=== PATIENT | female | born 1985 | race Caucasian/White ===

== ENCOUNTER → 2020-01-05 16:19 | Outpatient (CLI) | payer OTHER, SELFPAY ==
[2020-01-05 17:50] LABS: Absolute Lymphocyte Count 2.18 X10^3/uL (0.83-4.51); Absolute Neutrophil Count 5.4 X10^3/uL (2.0-7.7); Basophil# 0.03 X10^3/uL; Basophil% 0.4 % (0-1); Eosinophil# 0.04 X10^3/uL; Eosinophils% 0.5 % (0-5); Hematocrit 40.6 % (37-47); Hemoglobin 13.8 g/dL (12.0-15.0); Lymphocyte # 2.18 X10^3/ul (4.0); Lymphocyte % 26.6 % (19-41); Mean Corpuscular Hgb 30.6 pg (27.0-32.0); Mean Platelet Vol. 8.7 fl (6.2-12.0); Monocyte# 0.53 X10^3/uL; Monocyte% 6.5 % (0-10); NRBC Flagged by Analyzer 0 % (0-5); Neutrophil # 5.42 X10^3/uL (2.7-7.7); Neutrophil % 65.9 % (47-70); Platelet Count 249 K/mm3 (150-450); RBC Distribution Width CV 11.3 % (11.6-14.6); RBC Distribution Width SD 37.1 fl (35.1-43.9); Red Blood Count 4.51 M/mm3 (4.2-5.4); White Blood Count 8.2 K/mm3 (4.4-11.0)
[2020-01-05 18:10] LABS: Erythrocyte Sedimentation Rate 11 mm/hr (0-20)
[2020-01-05 18:13] LABS: CRP < 2.90 mg/L (0.0-3.0); Rheumatoid Factor < 10.0 IU/mL (<15)
[2020-01-07 16:17] LABS: ANTINUCLEAR ANTIBODIES DIRECT Negative (Negative)
== END ==
PROVIDERS: PCP Family Medicine
DX: M19.039 Primary osteoarthritis, unspecified wrist (principal)
CPT/HCPCS: 36415; 85025; 85652; 86038; 86140; 86431

== ENCOUNTER 2024-12-01 18:45 | Emergency (ER) | payer OTHER, SELFPAY ==
[2024-12-01 18:46] VITALS: BP 124/103; PULSE 71; RESP 16; TEMP 36; O2SAT 99; BMI 23.1
--- NOTE | 2024-12-01 19:09 | ED.VIS.GI ---
HPI <AQUILINO Payne - Last Filed: 12/01/24 21:46> HPI - GI History of Present Illness Chief Complaint: GI Bleed Narrative Narrative: Patient presenting today due to concerns for bright red blood she saw in her stool around 5 PM this evening. She had an episode of loose stool that contained bright red blood. Reports that this did happen once in the past but seem to resolve on its own. She does have a history of hemorrhoids and occasionally notices bright red blood after wiping. She reports mild right lower quadrant abdominal pain and nausea that also started around 5 PM. She denies any history of diverticulitis, she has never had a colonoscopy in the past. No history of GI bleed, she is not on any blood thinners. She denies any chronic medical conditions. She has had no fevers, vomiting, urinary symptoms, or previous abdominal surgery. PFSH <AQUILINO Payne - Last Filed: 12/01/24 21:46> [facility] Home Medications ?Medication ?Instructions ?Recorded ?Last Taken ?Type NK 12/01/24 Unknown History Allergy/AdvReac Type Severity Reaction Status Date / Time No Known Allergies Allergy Verified 12/01/24 18:45 ROS <AQUILINO Payne - Last Filed: 12/01/24 21:46> ROS ED Constitutional Constitutional ED: Denies chills or fever(s) Cardiovascular Cardiovascular: Denies chest pain Respiratory/Chest Respiratory/Chest: Denies dyspnea Gastrointestinal Gastrointestinal: Reports abdominal pain, diarrhea, hematochezia and nausea; Denies constipation or vomiting Genitourinary Genitourinary ED: Denies dysuria, hematuria or urinary urgency Musculoskeletal Musculoskeletal: Denies arthralgias or myalgias Integumentary Denies rash Neurologic Neurologic: Denies weakness EXAM <AQUILINO Payne - Last Filed: 12/01/24 21:46> Physical Exam Const Vital Signs: 12/01/24 18:46 12/01/24 20:45 12/01/24 21:01 Temperature 96.8 F L Temperature Source Temporal Pulse Rate 71 78 Pulse Rate [Lying] 89 Pulse Rate [Sitting (for 1 minute prior to obtaining)] 81 Pulse Rate [Standing (for 1 minute prior to obtaining)] 96 Respiratory Rate 16 18 Blood Pressure 124/103 H 115/81 H Blood Pressure [Lying] 116/77 Blood Pressure [Sitting (for 1 minute prior to obtaining)] 112/76 Blood Pressure Mean 110 92 Blood Pressure Mean [Lying] 90 Blood Pressure Mean [Sitting (for 1 minute prior to obtaining)] 88 Pulse Ox 99 98 Oxygen Delivery Method Room Air Room Air Positive well nourished, well developed and no apparent distress General Appearance ED: well developed HEENT Reports normocephalic and head/scalp atraumatic Mouth ED: Yes moist mucous membranes normal Eyes PERRL and EOMs intact bilaterally Neck full ROM and supple Chest Wall inspection of chest normal Resp normal respiratory effort and clear to auscultation bilaterally Cardio regular rate and regular rhythm GI soft to palpation, non-distended and no masses GI Narrative: Minimal right-sided abdominal tenderness to palpation, no rigidity or guarding. No McBurney's point tenderness. Rectal examination performed with nurse present, no gross rectal bleeding, no blood on the rectum, there is 1 small nonthrombosed external hemorrhoid without any bleeding, on REMEDIOS no blood was noted. Back/Spine normal ROM and normal to inspection Extremity normal to inspection and full ROM Neuro oriented x3, CN's II-XII intact bilaterally, moves all extremities, no focal motor deficits and no sensory deficits noted Sensorium / Orientation: awake and alert Psych mental status grossly normal and thought process normal Skin no rashes or lesions noted and no wounds <Dr. Rodolfo Smiley, - Last Filed: 12/01/24 21:49> Physical Exam Const Vital Signs: 12/01/24 18:46 12/01/24 20:45 12/01/24 21:01 Temperature 96.8 F L Temperature Source Temporal Pulse Rate 71 78 Pulse Rate [Lying] 89 Pulse Rate [Sitting (for 1 minute prior to obtaining)] 81 Pulse Rate [Standing (for 1 minute prior to obtaining)] 96 Respiratory Rate 16 18 Blood Pressure 124/103 H 115/81 H Blood Pressure [Lying] 116/77 Blood Pressure [Sitting (for 1 minute prior to obtaining)] 112/76 Blood Pressure Mean 110 92 Blood Pressure Mean [Lying] 90 Blood Pressure Mean [Sitting (for 1 minute prior to obtaining)] 88 Pulse Ox 99 98 Oxygen Delivery Method Room Air Room Air MDM <Marilou Chung PA - Last Filed: 12/01/24 21:46> [facility] MDM Narrative Medical decision making narrative: Patient presenting today due to an episode of bright red blood she noticed in her stool this evening around 5 PM. She also has mild right sided abdominal pain, no pain to McBurney's point. She is not on any blood thinners. She is nontoxic-appearing, labs will be obtained. Her CBC, CMP,, and urinalysis are unremarkable. CT scan of the abdomen and pelvis obtained to assess for diverticulitis,, colitis, and other abnormality and is negative for any acute findings. She did have 2 additional bowel movements here that contained bright red blood. I did perform a rectal exam, no gross rectal bleeding, there is 1 small non-thrombosed external hemorrhoid without any bleeding, no blood noted on REMEDIOS. Orthostatic vital signs were obtained and are negative. She was given IV fluids and Toradol and is doing well on reexamination. Her hemoglobin is stable here at 13.8. She does feel comfortable going home with strict return instructions. I did give her a referral for GI. She understands reasons to return and will be discharged home in stable condition. Lab Data Attestation: I reviewed the patient's lab results. Labs: Laboratory Results - last 24 hr 12/01/24 12/01/24 12/01/24 18:58 19:38 20:44 WBC 10.4 RBC 4.46 Hgb 13.8 Hct 40.2 MCV 90.1 MCH 30.9 MCHC 34.3 RDW Std Deviation 37.2 RDW Coeff of [place] 11.4 L Plt Count 256 MPV 8.8 Immature Gran % (Auto) 0.400 Neut % (Auto) 63.9 Lymph % (Auto) 27.3 [place] % (Auto) 7.1 Eos % (Auto) 0.9 Baso % (Auto) 0.4 Absolute Neuts (auto) 6.7 Absolute Lymphs (auto) 2.84 Nucleated RBC % 0 PT 12.7 INR 0.9 APTT 21.2 L Sodium 137 Potassium 3.4 Chloride 99 Carbon Dioxide 22.3 Anion Gap 15 BUN 13 Creatinine 0.73 Estim Creat Clear Calc 87.58 Est GFR (MDRD) Non-Af 106 BUN/Creatinine Ratio 18.3 Glucose 126 H Calcium 10.2 Total Bilirubin 0.88 AST 23 ALT 15 Alkaline Phosphatase 76 Total Protein 8.3 Albumin 5.0 Globulin 3.3 Albumin/Globulin Ratio 1.5 Serum , Qual NEGATIVE Urine Color Straw Urine Clarity Clear Urine pH 7.0 Ur Specific [place] 1.005 Urine Protein 15 H Urine Glucose (UA) Normal Urine Ketones Negative Urine Occult Blood Negative Urine Nitrite Negative Urine Bilirubin Negative Urine Urobilinogen Normal Ur Leukocyte Esterase Negative Radiography Diagnostic Testing: Clinical Impression(s) from Imaging Studies Abdomen/Pelvis CT 12/01/24 19:28 IMPRESSION: No acute abdominopelvic finding. Reading Location: [facility] <Dr. Rodolfo Smiley, DO - Last Filed: 12/01/24 21:49> [facility] Lab Data Labs: Laboratory Results - last 24 hr 12/01/24 12/01/24 12/01/24 18:58 19:38 20:44 WBC 10.4 RBC 4.46 Hgb 13.8 Hct 40.2 MCV 90.1 MCH 30.9 MCHC 34.3 RDW Std Deviation 37.2 RDW Coeff of [place] 11.4 L Plt Count 256 MPV 8.8 Immature Gran % (Auto) 0.400 Neut % (Auto) 63.9 Lymph % (Auto) 27.3 [place] % (Auto) 7.1 Eos % (Auto) 0.9 Baso % (Auto) 0.4 Absolute Neuts (auto) 6.7 Absolute Lymphs (auto) 2.84 Nucleated RBC % 0 PT 12.7 INR 0.9 APTT 21.2 L Sodium 137 Potassium 3.4 Chloride 99 Carbon Dioxide 22.3 Anion Gap 15 BUN 13 Creatinine 0.73 Estim Creat Clear Calc 87.58 Est GFR (MDRD) Non-Af 106 BUN/Creatinine Ratio 18.3 Glucose 126 H Calcium 10.2 Total Bilirubin 0.88 AST 23 ALT 15 Alkaline Phosphatase 76 Total Protein 8.3 Albumin 5.0 Globulin 3.3 Albumin/Globulin Ratio 1.5 Serum , Qual NEGATIVE Urine Color Straw Urine Clarity Clear Urine pH 7.0 Ur Specific [place] 1.005 Urine Protein 15 H Urine Glucose (UA) Normal Urine Ketones Negative Urine Occult Blood Negative Urine Nitrite Negative Urine Bilirubin Negative Urine Urobilinogen Normal Ur Leukocyte Esterase Negative Radiography Diagnostic Testing: Clinical Impression(s) from Imaging Studies Abdomen/Pelvis CT 12/01/24 19:28 IMPRESSION: No acute abdominopelvic finding. Reading Location: [facility] Treatment and Re-Evaluation :: I have personally performed a face to face assessment of the patient and have reviewed the TRINI Note. I performed a substantive portion of the visit including all aspects of the following. My yap findings include: History: Patient presents with lower gastrointestinal bleeding that became worse today. Patient states she has been passing bright red blood. Patient admits to some nausea but denies any vomiting. Patient admits to some right lower abdominal cramping. Patient states she gets better with rest. Patient states it is gradually gotten worse. Patient states she has been feeling tired. Patient admits to some subjective chills. Patient also admits to some pain in her right lower back. Exam: Vital signs are stable. Patient is afebrile. Patient is in no acute distress. Oral mucosa is pink and moist. Neck is supple. Trachea is midline. There is no JVD. Heart was regular rate and rhythm. Lungs are clear and equal bilaterally. Abdomen is soft. Bowel sounds are normal. There is some mild lower abdominal tenderness on the right. There is no rebound or guarding noted. Cranial nerves II through XII are intact. There are no focal motor or sensory deficits noted. Medical Decision Making: Differential diagnosis includes ovarian cyst, ectopic , lower gastrointestinal bleeding, diverticulitis, ureteral calculus, pyelonephritis, and anemia. CBC will be obtained to assess for leukocytosis and anemia. Comprehensive metabolic profile will be obtained to assess for hepatic function and electrolyte abnormality. Serum hCG will be obtained to assess for . PT with INR and PTT will be obtained to assess for coagulopathy. Urinalysis will be obtained to assess for urinary tract infection and hematuria. CT scan of the abdomen and pelvis will be obtained to assess for bowel obstruction, diverticulitis, and perforation. CBC was reviewed and was within normal limits. Comprehensive metabolic profile was reviewed. Glucose was mildly elevated at 126. The remainder is within normal limits. Serum hCG was reviewed and was negative. PT with INR and PTT were reviewed and were essentially within normal limits. Urinalysis was reviewed. There is no evidence of urinary tract infection or hematuria. CT scan of the abdomen and pelvis was obtained. There is no acute abnormality noted. There is no free air or free fluid noted. There is no evidence of bowel obstruction or perforation. This was interpreted by the radiologist and was also independently reviewed by myself. Rectal exam was performed by the TRINI and a small external hemorrhoid was noted. Patient was advised that this could be where the bleeding is coming from. Patient was advised that her blood counts are stable. Patient was instructed to follow-up with her primary care physician. Patient was advised that this could be managed as an outpatient. Patient understood and was agreeable with the plan. All questions were answered. Discharge Plan Triage Chief Complaint: GI Bleed ED Midlevel Provider: Marilou Chung ED Provider: Rodolfo Smiley Dx/Rx/DC Orders Clinical Impression: Abdominal pain, Diarrhea, Hematochezia Instructions: Abdominal Pain, ED Lower GI Bleeding (Stable) Prescriptions: No Action NK Primary Care Provider: Wallace Meredith Referrals: Wallace Meredith MD [Primary Care Provider] - 3-5 Days Rosas Junior DO [Med Staff - Active Staff] - 5-7 Days Activity Restrictions/Additional Instructions: Follow-up with GI, return for any worsening symptoms such as fevers, chills, feeling lightheaded, or any other concerns. Print Language: Czech Disposition Disposition: Home, Self Care
--- NOTE | 2024-12-01 19:28 | CT_ITS ---
PROCEDURE: ABDOMEN/PELVIS W IV CONT ONLY 12/01/2024 REASON FOR EXAM: 39-year-old female, ABDOMINAL PAIN, bright red blood in diarrhea. TECHNIQUE: Abdomen and pelvis CT with intravenous contrast. Coronal and Sagittal reconstruction series were provided. PATIENT PREPARATION: Per protocol ORAL CONTRAST TYPE: None. CONTRAST: Isovue 370 VOLUME: 100mL One or more dose reduction techniques were used (e.g., Automated exposure control, adjustment of the mA and/or kV according to patient size, use of iterative reconstruction technique. RADIATION DOSE SUMMARY: CTDlvol: 20 mGy DLP: 540 mGycm COMPARISON: None. FINDINGS: Lung bases: The lung bases are clear. The heart is normal in size. Liver: The liver is normal in size without focal hepatic mass. The major portal veins are patent. No biliary ductal dilation. Gallbladder: No radiopaque stones within the gallbladder. Spleen: Normal in size. Pancreas: Unremarkable. Adrenals: Unremarkable. Kidneys: No hydronephrosis or nephrolithiasis. Bladder: Decompressed. Reproductive Organs: Fibroid uterus. Left corpus luteum. Bowel: The bowel loops are normal in caliber. No ascites or pneumoperitoneum. Normal appendix. Lymph nodes: No suspicious lymphadenopathy. Vasculature: The abdominal aorta and IVC are normal. Bones: Unremarkable. CT/Abdomen/Pelvis W IV Cont ONLY IMPRESSION: No acute abdominopelvic finding. Reading Location: [facility]
[2024-12-01] MEDS: 0.9% Normal Saline (1000mL) 1,000 ML 999 ML IV (19:37)
[2024-12-01 19:39] LABS: Absolute Lymphocyte Count 2.84 X10^3/uL (0.83-4.51); Absolute Neutrophil Count 6.7 X10^3/uL (2.0-7.7); Basophil# 0.04 X10^3/uL; Basophil% 0.4 % (0-1); Eosinophil# 0.09 X10^3/uL; Eosinophils% 0.9 % (0-5); Hematocrit 40.2 % (37-47); Hemoglobin 13.8 g/dL (12.0-15.0); Lymphocyte # 2.84 X10^3/ul (0.83-4.51); Lymphocyte % 27.3 % (19-41); Mean Corp Hgb Conc 34.3 g/dL (32-36); Mean Corpuscular Hgb 30.9 pg (27.0-32.0); Mean Corpuscular Volume 90.1 fL (81-99); Mean Platelet Vol. 8.8 fl (6.2-12.0); Monocyte# 0.74 X10^3/uL; Monocyte% 7.1 % (0-10); NRBC Flagged by Analyzer 0 % (0-5); Neutrophil # 6.67 X10^3/uL (2.7-7.7); Neutrophil % 63.9 % (47-70); Platelet Count 256 K/mm3 (150-450); RBC Distribution Width CV 11.4 % (11.6-14.6); RBC Distribution Width SD 37.2 fl (35.1-43.9); Red Blood Count 4.46 M/mm3 (4.2-5.4); White Blood Count 10.4 K/mm3 (4.4-11.0)
[2024-12-01 19:47] LABS: International Normalized Ratio 0.9; Partial Thromboplast Time 21.2 Seconds (24.1-36.2); Prothrombin Time (Protime)PT. 12.7 SECONDS (11.7-14.9)
[2024-12-01 19:55] LABS: Internal QC Validated? YES +Cl - CLEAR BKGD; Pregnancy, Serum, hCG Quali. NEGATIVE Negative
[2024-12-01 20:01] LABS: ALB/GLOB Ratio 1.5 RATIO (0.9-2.4); AST(SGOT) 23 U/L (<=31); Alanine Aminotransfer ALT/SGPT 15 U/L (<=34); Alkaline Phosphatase 76 U/L (35-104); Anion Gap 15 (5-15); BUN 13 mg/dL (4-19); BUN/Creat Ratio 18.3 RATIO (10-20); Calcium,Total 10.2 mg/dL (7.6-11.0); Carbon Dioxide 22.3 mmol/L (21.0-32.0); Chloride 99 mmol/L (98-108); Creatinine, Serum 0.73 mg/dL (0.70-1.20); EST Glomerular Filtration Rate 106 (>60); Estimated Creatinine Clearance 87.58 ml/min (50-250); Globulin 3.3 g/dL (2.2-4.2); Glucose 126 mg/dL (70-99); Potassium 3.4 mmol/L (3.3-5.1); Protein, Total 8.3 g/dL (5.9-8.4); Sodium Level 137 mmol/L (133-145); Total Bilirubin 0.88 mg/dL (0.00-1.30)
[2024-12-01 20:45] VITALS: BP 115/81; PULSE 78; RESP 18; O2SAT 98
[2024-12-01 20:55] LABS: Bacteria 0 SEEN /hpf (None Seen); Mucous, Urine 0 SEEN /hpf (<or=2+); Squamous Epithelial Cells - UA 0 SEEN /hpf (5-10)
[2024-12-01] MEDS: Ketorolac 15 MG/ML Vial IV (20:58)
[2024-12-01 21:01] VITALS: BP 112/76; BP 116/77; PULSE 81; PULSE 89; PULSE 96
[2024-12-01 21:15] LABS: Color, Urine Straw (Yellow); Glucose, Dipstick Normal (Normal); Ketone-Dipstick Negative (Negative); Leukocyte Esterase-Dipstick Negative /ul (Negative); Nitrite-Dipstick Negative (Negative); Occult Blood-Urine Negative /ul (Negative); Protein-Dipstick 15 mg/dl (Negative); Specific Gravity, Urine 1.005 (1.002-1.030); Urine Bilirubin Dipstick Negative (Negative); Urine Clarity Clear (Clear); Urine Urobilinogen Normal (Normal)
[2024-12-01 22:06] VITALS: BP 107/70; PULSE 81; RESP 19; TEMP 36.7; O2SAT 97
[2024-12-01 22:17] LABS: White Blood Cells 0-5 SEEN /hpf (0-5)
[2024-12-01 23:08] LABS: Red Blood Cells-Urine 0 SEEN /hpf (0-5)
== END 2024-12-01 22:09 | disposition home or self-care (01) ==
PROVIDERS: Emergency Provider Emergency Medicine; PCP Family Medicine; Referring Provider Emergency Medicine; Visit Provider Emergency Medicine
DX: R10.9 Unspecified abdominal pain (principal); R19.7 Diarrhea, unspecified; K92.1 Melena
CPT/HCPCS: 74177; 80053; 81001; 84703; 85025; 85610; 85730; 96361; 96374; 99284; Q9967; A4216

== ENCOUNTER → 2024-12-03 | Outpatient (CLI) | payer OTHER, SELFPAY ==
[2024-12-03 09:52] LABS: Absolute Neutrophil Count 6.6 X10^3/uL (2.0-7.7); Basophil# 0.03 X10^3/uL; Basophil% 0.3 % (0-1); Eosinophil# 0.17 X10^3/uL; Eosinophils% 1.9 % (0-5); Hematocrit 38.6 % (37-47); Hemoglobin 13.3 g/dL (12.0-15.0); Lymphocyte % 19.7 % (19-41); Mean Corp Hgb Conc 34.5 g/dL (32-36); Mean Corpuscular Hgb 31.5 pg (27.0-32.0); Mean Corpuscular Volume 91.5 fL (81-99); Mean Platelet Vol. 8.4 fl (6.2-12.0); Monocyte# 0.55 X10^3/uL; NRBC Flagged by Analyzer 0 % (0-5); Neutrophil # 6.57 X10^3/uL (2.7-7.7); Neutrophil % 71.7 % (47-70); Platelet Count 232 K/mm3 (150-450); RBC Distribution Width CV 11.3 % (11.6-14.6); RBC Distribution Width SD 38.3 fl (35.1-43.9); Red Blood Count 4.22 M/mm3 (4.2-5.4); White Blood Count 9.2 K/mm3 (4.4-11.0)
== END | disposition home or self-care (01) ==
PROVIDERS: PCP Family Medicine; Referring Provider Nurse Practitioner Acute Care; Visit Provider Nurse Practitioner Acute Care
DX: K92.1 Melena (principal); R19.7 Diarrhea, unspecified; R10.9 Unspecified abdominal pain
CPT/HCPCS: 36415; 85025

== ENCOUNTER 2024-12-08 11:42 | Day surgery (SDC) | payer OTHER, SELFPAY ==
[2024-12-08] VITALS (7 sets, daily range): BP systolic 80–94; BP diastolic 49–76; PULSE 69–101; RESP 16; TEMP 36.6–37; O2SAT 98–100; BMI 23.1
--- NOTE | 2024-12-08 11:50 | PCM.PRE.AN2 ---
ASA Classification* ASA Classification ASA Classification: 2 Assessment & Plan Anesthesia* Anesthesia Assessment Anesthesia Assessment: Discussed sedation and/or anesthesia options, risks, benefits, and alternatives with patient/parents/legal guardian/POA. Questions invited. The patient/parents/legal guardian/POA seems to understand and agrees to proceed with anesthesia plan. Reviewed the physical assessment, medical history, allergy history and patient home medications list prior to surgery/procedure/anesthetic and documented any changes. Performed airway and anesthesia risk assessments. Anesthesia Type Anesthesia Type: MAC Anesthesia Focused Assessment* Airway Assessment Mouth opens: >3 cm Mallampati Score: II Focused Labs Anesthesia Preop lab: CBC WBC 9.2 K/mm3 (4.4-11.0) 12/03/24 09:21 12/03/24 RBC 4.22 M/mm3 (4.2-5.4) 12/03/24 09:21 12/03/24 Hgb 13.3 g/dL (12.0-15.0) 12/03/24 09:21 12/03/24 Hct 38.6 % (37-47) 12/03/24 09:21 12/03/24 Plt Count 232 K/mm3 (150-450) 12/03/24 09:21 12/03/24 CHEMISTRY Potassium 3.4 mmol/L (3.3-5.1) 12/01/24 18:58 12/01/24 Sodium 137 mmol/L (133-145) 12/01/24 18:58 12/01/24 BUN 13 mg/dL (4-19) 12/01/24 18:58 12/01/24 Creatinine 0.73 mg/dL (0.70-1.20) 12/01/24 18:58 12/01/24 Glucose 126 mg/dL (70-99) H 12/01/24 18:58 12/01/24 COAG PT 12.7 SECONDS (11.7-14.9) 12/01/24 18:58 12/01/24 Pre-Assessment Diagnosis/Proposed Procedure Planned Operative Procedure(s): CSCOPE Anesthesia History 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 When Was Last Pacemaker Check QUESTION #4 FULL TEXT: You/Your Family Experience fever (hyperthermia) with Anesthesia Last Oral Intake Last Oral intake: Last Oral Intake NPO since Meds taken in AM with sips of water? 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 Has anyone observed you stop No 12/03/24 11:13 breathing during sleep? STOP Results Negative 12/03/24 11:13 QUESTION #5 FULL TEXT : Do you snore loudly (louder than talking or can be heard through closed doors)? 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 Specify any problems Hx of Preganancy in last 3 N/A 12/03/24 11:13 Months Nurse Filling Out Transfusion NBUCHER 12/03/24 11:13 & Questions: Date: 12/03/24 12/03/24 11:13 Time: 11:14 12/03/24 11:13 Patient unable to answer at this time (ie. 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 Hx Now No 12/03/24 11:13 Gestational Age (in weeks): EDC: Hx Hx Para Hx Section SAB No 12/03/24 11:13 PFSH Medical History Syncope Non-smoker Abnormal findings on esophagogastroduodenoscopy (EGD) Stomach ulcer Gastroparesis Home Medications ?Medication ?Instructions ?Recorded ?Last Taken ?Type bismuth subsalicylate 262 mg/15 mL 524 mg PO Q30M PRN diarrhea 12/03/24 Unknown History oral suspension (Pepto-Bismol) diphenhydramine HCl 12.5 mg 12.5 mg PO QHS PRN SEASONAL 12/03/24 Unknown History chewable tablet ([facility] Benadryl Allergy) multivitamin 1 tab PO QAM 12/03/24 Unknown History ondansetron HCl 4 mg tablet 4 mg PO .COMPLEX #5 tabs 12/03/24 Unknown Rx sodium sul 1.479 gram-potas ch See Rx Instructions PO PER PKG DIR 12/03/24 Unknown Rx 0.188 gram-magnes sul 0.225 gram #24 tabs tablet (Sutab) tumeric 500 mg PO DAILY 12/03/24 Unknown History Allergy/AdvReac Type Severity Reaction Status Date / Time No Known Allergies Allergy Verified 12/03/24 11:10 Family History Mother Colon polyps Ulcerative colitis Grandfather Diverticulitis Surgical History History of wisdom tooth extraction History of arthroscopic knee surgery History of esophagogastroduodenoscopy (EGD) Social History Smoking Status: Never smoker alcohol intake: current details: 2 a week maybe substance use type: does not use diet: vegetarian Review of Systems (Anesthesia) ROS Narrative System reviewed and no additional complaints, except as documented.
--- NOTE | 2024-12-08 12:31 | HP.PCM_ITS ---
HPI - General General Date of Admission: 12/08/24 Date of Service: 12/08/24 Chief Complaint: rectal bleeding HPI Narrative JEFFY SYED, is a 39 F who presents for rectal bleeding - seen in office with partner - never had a colonoscopy - symptoms started Sunday evening around 5pm with intense crampy abdominal pain - had a formed stool followed by bloody diarrhea - bloody diarrhea lasted for about 24 hours, having stools every 30-60 minutes - last episode was last evening around 9pm - although she is limiting PO intake to prevent diarrhea - mild abdominal cramping this morning - BRB - coloring toilet water red - mild rectal soreness - denies any h/o CAD - denies any h/o smoking - social EtOH use - denies any HRT - rare use of non-steroidal medications - reports a remote history of rectal bleeding, but not similar to present symptoms - family h/o is significant for mom with UC and colon polyps - denies any HB, N/V LMP 2 weeks ago PFSH Medical History Syncope Non-smoker Abnormal findings on esophagogastroduodenoscopy (EGD) Stomach ulcer Gastroparesis Home Medications ?Medication ?Instructions ?Recorded ?Last Taken ?Type bismuth subsalicylate 262 mg/15 mL 524 mg PO Q30M PRN diarrhea 12/03/24 Unknown History oral suspension (Pepto-Bismol) diphenhydramine HCl 12.5 mg 12.5 mg PO QHS PRN SEASONA L 12/03/24 Unknown History chewable tablet ([facility] Benadryl Allergy) multivitamin 1 tab PO QAM 12/03/24 Unknow n History ondansetron HCl 4 mg tablet 4 mg PO .COMPLEX #5 tabs 0 12/03/24 12/08/24 06:00 Rx sodium sul 1.479 gram-potas ch See Rx Instructions PO PER PKG DIR 12/03/24 12/08/24 Rx 0.188 gram-magnes sul 0.225 gram #24 tabs tablet (Sutab) tumeric 500 mg PO DAILY 12/03/24 Unk nown History acetaminophen 325 mg capsule 325 mg PO Q6H PRN fever o r pain 12/08/24 12/08/24 History Allergy/AdvReac Type Severity Reaction Status Date / Time No Known Allergies Allergy Verified 12/08/24 12:15 Family History Mother Colon polyps Ulcerative colitis Grandfather Diverticulitis Surgical History History of wisdom tooth extraction History of arthroscopic knee surgery History of esophagogastroduodenoscopy (EGD) Social History Smoking Status: Never smoker alcohol intake: current details: 2 a week maybe substance use type: does not use diet: vegetarian ROS Constitutional Constitutional: Denies fatigue, fever(s), poor appetite, weight gain or weight loss Gastrointestinal Gastrointestinal: Denies belching, bloating, change in bowel habits, change in stool character, chewing difficulty, coffee ground emesis, constipation, cramping, diarrhea, dyspepsia, dysphagia, early satiety, excessive flatus, fecal incontinence, heartburn, hematemesis, hematochezia, hemorrhoids, loose stools, melena, nausea, odynophagia, rectal bleeding, tenesmus, vomiting or weight changes Vital Signs Vital Signs Vital Signs: 12/08/24 12:19 12/08/24 12:19 Temperature 98.6 F Temperature Source Temporal Pulse Rate 101 H Respiratory Rate 16 Respiratory Pattern Normal Blood Pressure 94/76 Blood Pressure Mean 82 Blood Pressure Source Monitor Blood Pressure Position Sitting Blood Pressure Location Left Arm Pulse Ox 100 Oxygen Delivery Method Room Air Weight Weight: 134 lb 7.712 oz Body Mass Index (BMI) 23.1 Physical Exam Const alert, oriented x3, no apparent distress and healthy appearing General Appearance: cooperative GI normal to inspection, nondistended, normoactive bowel sounds, soft to palpation, non-tender and non-distended Percussion: normal to percussion Rectal Exam: deferred Assessment & Plan Assessment/Plan (1) Hematochezia: (2) Diarrhea: QUALIFIERS: Diarrhea type: unspecified type Qualified Code(s): R19.7 - Diarrhea, unspecified (3) Abdominal pain: QUALIFIERS: Abdominal location: generalized Qualified Code(s): R10.84 - Generalized abdominal pain PLAN: Assessment and Plan Assessment and Plan (1) Abdominal pain: Status: Acute Qualifiers: Abdominal location: generalized Qualified Code(s): R10.84 - Generalized abdominal pain (2) Diarrhea: Status: Acute Qualifiers: Diarrhea type: unspecified type Qualified Code(s): R19.7 - Diarrhea, unspecified (3) Hematochezia: Status: Acute Orders: Orders CBC W/Diff, Automated Today K92.1 - Melena, R10.9 - Unspecified abdominal pain, R19.7 - Diarrhea, unspecified Medications: New sod sulf-pot chloride-mag sulf 1.479-0.188- 0.225 gram (Sutab) as directed for split dose bowel prep 24 tabs 0RF ondansetron HCl 4 mg orally; take two tablets PO two hours prior to start of bowel prep and one every 4 hours as needed for N/V 5 tabs 0RF Plan 39y/o female presents for consultation with complaints of rectal bleeding. She was seen in the emergency department on 12/01 after an episode of bloody diarrhea with mild right sided abdominal pain. She had two more episodes of bleeding while in ED. CT A&P was unremarkable for acute findings. REMEDIOS unremarkable for gross bleeding. HGB stable at 13.8. Symptoms began with sudden onset intense crampy abdominal pain on Sunday evening followed by multiple episodes of bloody diarrhea. She reports her last episode of bleeding was last evening around 9pm; however, she is limiting her p.o. intake to decrease frequency of stools. She denies CAD, HRT, hypotension, smoking, nonsteroidal use and blood clotting disorders. Family history is significant for mom with ulcerative colitis. I have ordered stool testing and will repeat a CBC today. She will proceed with colonoscopy. Note: [employer] speech recognition tourist information assistant software was used to create portions of this document. Sound-alike and misspelled words, as well as other tourist information assistant errors may be contained in the documentation. Patient Instructions: Avoid non-steroidal medications Complete PD4 stool testing - GIPCR w/ C. Diff, Calprotectin Colonoscopy - SuTab CBC today Advance diet as tolerated, low residue Follow-up in office post procedure
[2024-12-08 12:40] LABS: Internal QC Validated? YES +Cl - CLEAR BKGD; Pregnancy, Serum, hCG Quali. NEGATIVE Negative
--- NOTE | 2024-12-08 12:45 | COLBX_PTH ---
PATIENT: JEFFY SYED LOC: EN U#:[id number] AGE/SX: 39/F ROOM: RE12/08/[address]: Dr. Rosas Junior DO : 1985 BED: DIS: 12/08/2024 SPEC #: [id number] RECD: 12/09/24 08:49 STATUS: RY SULLIVANBertram #: [id number] ELI: 12/08/24 12:[address]: Rosas Junior DEPT: SURGICAL PATHOLOGY RECD BY: Domingo Arora ENTERED: 12/09/24 08:50 SP TYPE: COLON BX YARED DR: Dr. Wallace Meredith MD Tissues: A - COLON BIOPSY Procedures: Surgery Specimen Level IV HEADER OPERATION: Colonoscopy, biopsy PRE-OP DIAGNOSIS: Abdominal pain, diarrhea, hematochezia TISSUE SUBMITTED: A- Recto-sigmoid ischemic colitis biopsy MICROSCOPIC DIAGNOSIS A. Rectosigmoid colon, biopsy: * No specific pathologic change. MICROSCOPIC DESCRIPTION Slides are reviewed. GROSS DESCRIPTION A. Received in fixative is one container labeled with the patient's name and designated Rectosigmoid colitis biopsy. The specimen consists of multiple irregular fragments of light schmidt soft tissue that in aggregate measure 1.4 x 0.2 x 0.2 cm. The specimen is totally submitted in one cassette. 12/09/2024 CPT:27209
--- NOTE | 2024-12-08 13:54 | PCM.POST.ANE ---
Anesthesia: Postop Eval I Current Vital Signs Temperature: 97.8 F Pulse Rate: 75 Blood Pressure: 80/49 Respiratory Rate: 16 Pulse Ox: 98 Oxygen Delivery Method: Room Air Assessment Airway patent: Yes Spontaneous unlabored respirations: Yes Mental status: Asleep nausea: No Vomiting: No Anesthesia Complication: No Fluid Hydration Crystalloid volume administer (ml): 40 Total IV fluid infused: 40 Progress Note Anesthesia document: Postop Eval 1 completed: Yes
--- NOTE | 2024-12-08 13:59 | OP.CCLET_ITS ---
12/08/2024 Wallace Meredith [address] [place] [address] Re : Colonoscopy procedure for Darshana Grider Dear Dr. Meredith This procedure was performed on Sunday, December 08, 2024. My impressions and recommendations are as follows: Impressions : - Non-bleeding internal hemorrhoids. - Segmental moderate inflammation was found in the recto-sigmoid colon, in the sigmoid colon and in the descending colon secondary to colitis. Biopsied. - The examined portion of the ileum was normal. Recommendations : - Discharge patient to home. - Resume previous diet. - Continue present medications. - Await pathology results. - Resume previous diet. - Continue present medications. - Await pathology results. - Repeat colonoscopy in 10 years for screening purposes. My findings are described in the full procedure note, which is enclosed. If I can be of further assistance, please feel free to contact me at . Sincerely, Rosas Junior, 12/08/2024 1:58:32 PM This report has been signed electronically.
--- NOTE | 2024-12-08 13:59 | OP.COLON_ITS ---
Patient Name: Darshana Grider Procedure Date: 12/08/2024 1:28 PM Date of : 1985 Age: 39 Procedure: Colonoscopy Indications: Hematochezia Providers: Rosas Junior DO Referring MD: Wallace Meredith Medicines: Monitored Anesthesia Care Patient Profile: This is a 39 year old female. Refer to note in patient chart for documentation of history and physical. Last Colonoscopy: none. The patient's first colonoscopy is today. Complications: No immediate complications. Procedure: Pre-Anesthesia Assessment: - Prior to the procedure, a History and Physical was performed, and patient medications and allergies were reviewed. The patient is competent. The risks and benefits of the procedure and the sedation options and risks were discussed with the patient. All questions were answered and informed consent was obtained. Patient identification and proposed procedure were verified by the physician in the pre-procedure area. Mental Status Examination: alert and oriented. Airway Examination: normal oropharyngeal airway and neck mobility. Respiratory Examination: clear to auscultation. CV Examination: normal. Prophylactic Antibiotics: The patient does not require prophylactic antibiotics. Prior Anticoagulants: The patient has taken no anticoagulant or antiplatelet agents except for NSAID medication. ASA Grade Assessment: II - A patient with mild systemic disease. After reviewing the risks and benefits, the patient was deemed in satisfactory condition to undergo the procedure. The anesthesia plan was to use monitored anesthesia care (MAC). Immediately prior to administration of medications, the patient was re-assessed for adequacy to receive sedatives. The heart rate, respiratory rate, oxygen saturations, blood pressure, adequacy of pulmonary ventilation, and response to care were monitored throughout the procedure. The physical status of the patient was re-assessed after the procedure. After I obtained informed consent, the scope was passed under direct vision. Throughout the procedure, the patient's blood pressure, pulse, and oxygen saturations were monitored continuously. The Colonoscope was introduced through the anus and advanced to the terminal ileum. Scope In: 1:34:46 PM Scope Withdrawal Time 0 hours 6 minutes 54 seconds Scope Out: 1:46:28 PM Total Procedure Duration Time 0 hours 11 minutes 42 seconds Findings: The perianal and digital rectal examinations were normal. Non-bleeding internal hemorrhoids were found during retroflexion. The hemorrhoids were Grade II (internal hemorrhoids that prolapse but reduce spontaneously). Segmental moderate inflammation characterized by erythema, friability and granularity was found in the recto-sigmoid colon, in the sigmoid colon and in the descending colon. Biopsies were taken with a cold forceps for histology. Verification of patient identification for the specimen was done. Estimated blood loss was minimal. No other significant abnormalities were identified in a careful examination of the remainder of the colon. The terminal ileum appeared normal. Impression: - Non-bleeding internal hemorrhoids. - Segmental moderate inflammation was found in the recto-sigmoid colon, in the sigmoid colon and in the descending colon secondary to colitis. Biopsied. - The examined portion of the ileum was normal. Recommendation: - Discharge patient to home. - Resume previous diet. - Continue present medications. - Await pathology results. - Resume previous diet. - Continue present medications. - Await pathology results. - Repeat colonoscopy in 10 years for screening purposes. Procedure Code(s): --- Professional --- 99913, Colonoscopy, flexible; with biopsy, single or multiple CPT copyright 2021 [employer]. All rights reserved. The codes documented in this report are preliminary and upon equipment records supervisor review may be revised to meet current compliance requirements. Rosas Junior DO 12/08/2024 1:58:32 PM This report has been signed electronically. Number of Addenda: 0 Note Initiated On: 12/08/2024 1:28 PM
--- NOTE | 2024-12-08 14:26 | PCM.POSTANE2 ---
Anesthesia Postop Eval I Sum Postop Eval Completion status Anesthesia document: Postop Eval 1 completed: Yes Anesthesia Postop Eval I Summary Anesthesia Postop Eval I Summary: Anesthesia Postop Eval I: Assessment Summary Airway patent Yes 12/08/24 13:55 [email or web address] Spontaneous unlabored Yes 12/08/24 13:55 [email or web address] respirations Mental status Asleep 12/08/24 13:55 [email or web address] nausea No 12/08/24 13:55 [email or web address] Vomiting No 12/08/24 13:55 [email or web address] Anesthesia Postop Eval I: Fluid Summary Crystalloid volume administer 40 12/08/24 13:55 [email or web address] (ml) Colloids volume administered ( ml) Blood Product volume administered (ml) Total IV fluid infused 40 12/08/24 13:55 [email or web address] Anesthesia Postop Eval I: Summary Notes Anesthesia Complication No 12/08/24 13:55 [email or web address] Anesthesia Complication Comment: Post-operative progress note Anesthesia: Postop Eval II Evaluation Mental status: Awake Pain Level: 0 nausea: No Vomiting: No
== END 2024-12-08 14:50 | disposition home or self-care (01) ==
LOC: EN 11:43 → AC 11:44
PROVIDERS: Anesthesiology; PCP Family Medicine; Referring Provider Family Medicine; Visit Provider Internal Medicine Gastroenterology
PROC: 0DJD8ZZ Inspection of Lower Intestinal Tract, Via Natural or Artificial Opening Endoscopic (ICD-10-PCS; CPT 45378; principal; 2024-12-08 12:40)
DX: K62.5 Hemorrhage of anus and rectum (principal); K52.9 Noninfective gastroenteritis and colitis, unspecified; R10.84 Generalized abdominal pain; K64.1 Second degree hemorrhoids
CPT/HCPCS: 43239; 84703; 88305; A4216; J2405

== ENCOUNTER → 2025-02-05 | Outpatient (CLI) | payer OTHER, SELFPAY ==
--- NOTE | 2025-02-05 17:49 | US_ITS ---
PROCEDURE: PELVIC W/ TRANSVAGINAL 02/05/2025 REASON FOR EXAM: PELVIC PAIN TECHNIQUE: Transabdominal and transvaginal pelvic ultrasound. Color and spectral doppler analysis of the ovaries. COMPARISON: CT abdomen and pelvis 12/01/2024. FINDINGS: Measurements: Uterus: 6.9 x 3.6 x 4.9 cm for volume of 62.1 mL Endometrial Thickness: 0.5 cm Right Ovary: 2.7 x 1.4 x 2.2 cm for volume of 4.3 mL Left Ovary: 2.6 x 2.1 x 2.4 cm for volume of 6.6 mL Uterus: Anteverted. Heterogeneous lesions at the uterine fundus measuring 1.5 x 1.5 x 1.6 cm and 0.6 x 0.5 x 0.7 cm. Endometrium: Normal echotexture. Trace fluid within the cervical canal, likely physiologic. Right ovary: Normal size and echotexture. Left ovary: Normal size and echotexture. Cul-de-sac: No free intraperitoneal fluid identified. DOPPLER: Color Doppler: Normal color flow doppler signal at both ovaries. Spectral Doppler: Normal arterial inflow and venous outflow signal at both ovaries. US/Pelvic w/ Transvaginal IMPRESSION: Leiomyomas measuring up to 1.6 cm, in keeping with findings on recent CT. Reading Location: [id number]
== END | disposition home or self-care (01) ==
PROVIDERS: PCP Family Medicine; Referring Provider Obstetrics & Gynecology; Visit Provider Obstetrics & Gynecology
DX: R10.2 Pelvic and perineal pain (principal)
CPT/HCPCS: 76830; 76856

== ENCOUNTER → 2025-02-13 | Outpatient (CLI) | payer OTHER, SELFPAY ==
[2025-02-16 21:08] LABS: Chlamydia By Nucleic Acid AMP Negative (Negative); Gonococcus By Nucleic Acid AMP Negative (Negative)
[2025-02-17 23:07] LABS: HPV APTIMA, High Risk Negative (Negative)
== END | disposition home or self-care (01) ==
LOC: LABSPEC 16:34
PROVIDERS: PCP Family Medicine; Referring Provider Obstetrics & Gynecology; Visit Provider Obstetrics & Gynecology
DX: Z12.4 Encounter for screening for malignant neoplasm of cervix (principal); Z11.3 Encounter for screening for infections with a predominantly sexual mode of transmission; R10.2 Pelvic and perineal pain
CPT/HCPCS: 87070; 87205; 87491; 87591; 87624; 88175; G0145